=== PATIENT | male | born 1955 | race African-American/Black ===

== ENCOUNTER 2023-01-23 07:56 | Observation (INO) | payer OTHER, MEDICARE, SELFPAY ==
[2023-01-23] VITALS (17 sets, daily range): BP systolic 124–154; BP diastolic 75–89; PULSE 78–118; RESP 18–22; TEMP 36.4–37.9; O2SAT 94–98; BMI 38.3; BMI 38.9
--- NOTE | 2023-01-23 08:16 | CRLHL7_ITS ---
For Patients: As a result of the Century Cures Act, medical imaging exams and procedure reports are released immediately into your electronic medical record. You may view this report before your referring provider. If you have questions, please contact your health care provider. INDICATION: One-week history of cough. TECHNIQUE: One-view COMPARISON: None. FINDINGS: Patient positioning: Lordotic. The patient is not rotated. Adequate inspiration. Heart and mediastinum: Normal transverse dimension of the cardiac silhouette. No significant abnormalities. Lungs and pleural spaces: Anterior segment right upper lobe consolidation consistent with pneumonia in the correct clinical setting. No significant volume loss. Pleural-based peripheral left basilar thin uniform band opacity consistent with subsegmental atelectasis or nonspecific minor fibrosis. Bones and soft tissues: No acute findings. Left-sided dual lead cardiac conduction device. IMPRESSION: Anterior segment right upper lobe consolidation consistent with pneumonia in the correct clinical setting. Follow-up chest radiographs are recommended in 6-8 weeks to document clearing given the patient`s age. Dictated by Jordan Heath MD @ 01/23/2023 8:54:33 AM (Electronically Signed)
--- NOTE | 2023-01-23 08:19 | ED_ITS ---
HPI - General Adult General Chief complaint: Shortness of Breath/Dyspnea Stated complaint: trouble breathing Time Seen by Provider: 01/23/23 08:16 History of Present Illness HPI narrative: Patient is a 67-year-old black male with a history of sarcoidosis was been sick for the last couple of weeks. He has been through multiple exacerbations of sarcoid related illness with respiratory symptoms and wheezing. He feels like he is in that state at this point. He saw his provider few days ago and got started on steroids he has taken 2 doses of steroid. He did not have an x-ray. He has had a dry raspy cough, he has been slightly short of breath, he has had a low-grade fever and chills. He reports that he has a ?bad back?, and he also reports he has sarcoidosis. He reports he is on a ?water pill? and has a defibrillator. He states that the ?sarcoid got into my heart.? His pacemaker has been working well, he lives in [place]. His daughter is to arrive, he reports that he called the ambulance today, Medical chart was obtained from electronic health record, demonstrates the patient has a history of Heart palpitations Right bundle branch block Implanted cardioverter-defibrillator Acute on chronic diastolic heart failure Nonsustained ventricular tachycardia PSVT Ascending aortic dilatation Cardiac sarcoidosis Medications have included: Albuterol Eliquis Symbicort Oscal Lasix Plaquenil Cozaar Zaroxolyn Toprol XL CellCept Pamelor Prilosec Oyster shell calcium Prednisone for couple of days Related Data Home Medications Medication Instructions Recorded Confirmed albuterol sulfate 2.5 mg/3 mL 2.5 mg inhalation Q4H PRN wheezing 01/23/23 01/23/23 (0.083 %) solution for nebulization albuterol sulfate 90 mcg/actuation 2 puff inhalation Q4H PRN wheezing 01/23/23 01/23/23 aerosol inhaler (Ventolin HFA) apixaban 5 mg tablet 5 mg PO BID 01/23/23 01/23/23 budesonide-formoterol HFA 160 2 puff inhalation BID 01/23/23 01/23/23 mcg-4.5 mcg/actuation aerosol inhaler (Breyna) calcium carbonate 500 mg calcium 500 mg PO DAILY 01/23/23 01/23/23 (1,250 mg) tablet (Oyster Shell Calcium) furosemide 20 mg tablet 60 mg PO DAILY PRN 01/23/23 01/23/23 hydroxychloroquine 200 mg tablet 400 mg PO DAILY 01/23/23 01/23/23 (Plaquenil) losartan 50 mg tablet (Cozaar) 50 mg PO BID 01/23/23 01/23/23 metoprolol succinate 100 mg 100 mg PO BID 01/23/23 01/23/23 tablet,extended release 24 hr (Toprol XL) mycophenolate mofetil 500 mg 500 mg PO BID 01/23/23 01/23/23 tablet (CellCept) nortriptyline 10 mg capsule 10 mg PO HS 01/23/23 01/23/23 omeprazole 20 mg capsule,delayed 20 mg PO DAILY 01/23/23 01/23/23 release prednisone 20 mg tablet 40 mg PO DAILY 01/23/23 01/23/23 sildenafil 100 mg tablet (Viagra) 100 mg PO DAILY PRN 01/23/23 01/23/23 tamsulosin 0.4 mg capsule (Flomax) 0.4 mg PO DAILY 01/23/23 01/23/23 tizanidine 2 mg tablet 2 mg PO Q8H PRN 01/23/23 01/23/23 Allergies Allergy/AdvReac Type Severity Reaction Status Date / Time pollen extracts Allergy Mild sore throat Verified 01/23/23 09:18 Review of Systems Status of ROS: Reports: 6 or more systems reviewed and unremarkable except as noted in History and below Narrative: Specifically has not had any chest pain PFSH PFSH Social History Smoking Status: Never smoker Do you use any of these nicotine containing products: None How often do you have a drink containing alcohol: monthly or less AUDIT-C Alcohol total score: 1 Non-prescribed substance use: denies use service: No Exam Narrative: Exam Narrative: Objective: Temperature is a 100.3?, O2 sat is 94%, the patient get did get a DuoNeb in the ambulance. He has a raspy dry cough Talks in short and minimally labored sentences. HEENT shows no facial asymmetry mouth clear slightly dry Neck is supple Chest minimal air exchange bilaterally no obvious rales or wheezes Heart rhythm regular 2/6 systolic murmur Abdomen benign Extremities are no edema, neurologic nonfocal. Const: Vital Signs, click to edit/add: Vital Signs - 24 hr 01/23/23 08:04 01/23/23 08:26 01/23/23 08:28 Temperature 100.3 F H Pulse Rate 118 H Respiratory Rate 22 Blood Pressure Blood Pressure [Ri ght Upper Arm] 132/78 Pulse Oximetry 94 95 96 Oxygen Delivery Me thod Room Air 01/23/23 08:30 01/23/23 08:32 01/23/23 08:33 Temperature Pulse Rate 106 H 110 H 104 H Respiratory Rate Blood Pressure 154/87 H Blood Pressure [Ri ght Upper Arm] Pulse Oximetry 95 94 95 Oxygen Delivery Me thod 01/23/23 08:45 01/23/23 09:00 01/23/23 09:05 Temperature Pulse Rate 102 H 108 H 103 H Respiratory Rate Blood Pressure Blood Pressure [Ri ght Upper Arm] Pulse Oximetry 95 96 96 Oxygen Delivery Me thod 01/23/23 09:06 01/23/23 09:15 01/23/23 09:30 Temperature Pulse Rate 104 H 102 H 101 H Respiratory Rate Blood Pressure Blood Pressure [Ri ght Upper Arm] Pulse Oximetry 97 96 96 Oxygen Delivery Me thod 01/23/23 09:55 Temperature 98.5 F Pulse Rate Respiratory Rate Blood Pressure Blood Pressure [Ri ght Upper Arm] Pulse Oximetry Oxygen Delivery Me thod Course Vital Signs Vital signs: Initial Vital Signs Temperature 100.3 F H 01/23/23 08:04 Temperature Source Temporal Artery Scan 01/23/23 08:04 Respiratory Rate 22 01/23/23 08:04 Blood Pressure 132/78 01/23/23 08:04 Blood Pressure Mean 96 01/23/23 08:04 Blood Pressure Position Sitting 01/23/23 08:04 Pulse Oximetry 94 01/23/23 08:04 Oxygen Delivery Method Room Air 01/23/23 08:04 Vital Signs Temperature 100.3 F H 01/23/23 08:04 Respiratory Rate 22 01/23/23 08:04 Blood Pressure 132/78 01/23/23 08:04 Pulse Oximetry 94 01/23/23 08:04 Oxygen Delivery Method Room Air 01/23/23 08:04 Temperature 98.5 F 01/23/23 09:55 Pulse Rate 101 H 01/23/23 09:30 Respiratory Rate 22 01/23/23 08:04 Blood Pressure 154/87 H 01/23/23 08:32 Pulse Oximetry 96 01/23/23 09:30 Oxygen Delivery Method Room Air 01/23/23 08:04 Medical Decision Making MDM Narrative Medical decision making narrative: 67-year-old black male with a history of sarcoidosis, sick with an upper respiratory symptom for 2 weeks, with worsening breathing and fever. Rule out pneumonia, rule out sarcoid exacerbation, rule out bronchospasm/reactive airway disease. Patient this point I think would benefit from IV steroids, IV fluid, cardiac and oximetry monitoring, laboratory studies, blood cultures, COVID influenza RSV testing. Given the patient's respiratory symptoms and history of might be advisable to observe him overnight, hydration, antibiotics depending on his x-ray findings Addendum 8:56 a.m. patient has pretty significant pleural type scarring and interstitial scarring on his lung special on the right lung. Cannot exclude pneumonia. No old x-ray to compare. Will do a CT with IV contrast rule out PE rule out pneumonia rule out inter pulmonary pathology. Patient was in agreement Addendum 9:14 a.m.: Given the patient's immune compromise being on Plaquenil and steroid already, and his evidence of pneumonia. I think could be appropriate to admit him to the hospital for observation IV antibiotics IV fluid, nebulizers as needed, likely IV steroids. Will discuss with hospitalist. Lab Data Labs: Lab Results 01/23/23 01/23/23 Range/Units 08:20 08:41 WBC 9.38 (4.50-11.00) K/uL RBC 4.20 L (4.30-5.90) m/uL Hgb 13.3 L (13.5-17.5) gm/dL Hct 38.2 (37.0-53.0) % MCV 91 (80-100) fL MCH 32 (26-34) pg MCHC 35 (32-36) gm/dL RDW Coeff of Alice 12.9 (11.5-15.5) % Plt Count 158 (140-440) K/uL Neut % (Auto) 86.0 H (42.0-72.0) % Lymph % (Auto) 10.1 L (20-44) % Weakley % (Auto) 3.6 (0.0-11.0) % Eos % (Auto) 0.1 (0.0-7.0) % Baso % (Auto) 0.0 (0.0-3.0) % Neut # (Auto) 8.10 H (1.7-7.0) K/uL Lymph # (Auto) 0.90 (0.90-2.90) K/uL Weakley # (Auto) 0.30 (0.00-0.90) K/UL Eos # (Auto) 0.01 (0.00-0.50) K/uL Baso # (Auto) 0.00 (0.00-0.30) K/uL Abs Immat Gran (auto) 0.02 (0.00-0.30) K/uL Imm/Tot Granulo (auto) 0.2 % VBG pH 7.461 H (7.32-7.43) VBG pCO2 32 L (40-50) mmHG VBG pO2 50.7 H (25-47) mmHG VBG HCO3 23 (21-28) mmol/L Sodium 139 (135-149) mmol/L Potassium 4.0 (3.6-5.1) mmol/L Chloride 108 (96-114) mmol/L Carbon Dioxide 20 (20-32) mmol/L Anion Gap 11 (7-15) mEq/L BUN 16 (7-30) mg/dL Creatinine 1.0 (0.5-1.5) mg/dL Estimated Creat Clear 76.04 Estimated GFR 84 ml/min Glucose 128 H (60-115) mg/dL Lactate 1.2 (0.5-1.9) mmol/L Calcium 9.5 (8.4-10.6) mg/dL Total Bilirubin 1.0 (0.1-1.5) mg/dL Direct Bilirubin 0.0 (0.0-0.5) mg/dL AST 39 H (12-35) U/L ALT 21 (4-50) U/L Alkaline Phosphatase 51 (40-150) U/L Troponin I < 0.01 L (0.01-0.04) ng/mL C-Reactive Protein 2.7 H (0.5-1.0) mg/dL NT-Pro-B Natriuret Pep 123 pg/mL Total Protein 7.3 (6.0-8.3) g/dL Albumin 4.3 (3.3-5.0) g/dL SARS-CoV-2 (PCR) Negative SARS-CoV-2 (Negative) Influenza Type A (PCR) Negative PCR FLU A (Negative) Influenza Type B (PCR) Negative PCR FLU B (Negative) RSV (PCR) Negative PCR RSV (Negative) Discharge Plan Discharge Clinical Impression: Pulmonary sarcoidosis, Shortness of breath, Chronic low back pain Patient Disposition: Admitted As Inpatient
[2023-01-23 08:49] LABS: HCO3 VBG 23 mmol/L (21-28); Lactate* 1.2 mmol/L (0.5-1.9); PCO2 VBG 32 mmHG (40-50); PO2 VBG 50.7 mmHG (25-47); pH VBG 7.461 (7.32-7.43)
[2023-01-23 08:50] LABS: Eosinophils Absolute Auto 0.01 K/uL (0.00-0.50); Eosinophils Percent Auto 0.1 % (0.0-7.0); Hematocrit 38.2 % (37.0-53.0); Hemoglobin* 13.3 gm/dL (13.5-17.5); Immature Granulocytes Abs Auto 0.02 K/uL (0.00-0.30); Immature Granulocytes Pct Auto 0.2 %; Lymphocytes Percent Auto 10.1 % (20-44); Mean Corpuscular HGB Conc 35 gm/dL (32-36); Mean Corpuscular Hemoglobin 32 pg (26-34); Mean Corpuscular Volume 91 fL (80-100); Monocytes Percent Auto 3.6 % (0.0-11.0); Platelet Count* 158 K/uL (140-440); RDW Coefficient of Variation % 12.9 % (11.5-15.5); White Blood Count* 9.38 K/uL (4.50-11.00)
[2023-01-23] MEDS: IPRAT-ALBUT 0.5-2.5 MG/3 ML NEB 1 NEB IH (08:50)
[2023-01-23] MEDS: METHYLPREDNISOLONE SOD SUCC 62.5 MG/ML (125) 125 MG IVP (08:50)
--- NOTE | 2023-01-23 08:50 | CRLHL7_ITS ---
For Patients: As a result of the 21st Century Cures Act, medical imaging exams and procedure reports are released immediately into your electronic medical record. You may view this report before your referring provider. If you have questions, please contact your health care provider. INDICATION: Cough for 1 week. Possible PE or pneumonia. TECHNIQUE: Volumetric helical scanning of the thorax was performed during infusion of 95 cc of Isovue 370 contrast material IV, timing optimized for pulmonary arterial opacification. Coronal and sagittal reconstructions were obtained. COMPARISON: Chest x-ray of 01/23/2023 FINDINGS: The images are of acceptable quality and demonstrate uniform vascular enhancement within the pulmonary arteries. No pulmonary arterial filling defect is identified. The heart size is normal. An AICD is again noted. The lungs are low in volume. A patchy infiltrate consistent with pneumonia is demonstrated in the posterior left lower lobe base. Atelectasis and possible pneumonia is demonstrated in the inferior right upper lobe along the minor fissure and in the inferior lingula. There is no significant airway abnormality. A noncalcified 16 mm nodular density is demonstrated in the left lower lobe on image 116 of series 5. On image 98, a noncalcified 10 mm left lower lobe nodular density is demonstrated and on image 137, and 8 mm left lower lobe nodular density is noted. No pleural effusion is demonstrated. Mild mediastinal lymphadenopathy is demonstrated and enlarged hilar nodes are demonstrated bilaterally. Multiple deandra calcifications are demonstrated, particularly in the hilar nodes. Images of the upper abdomen are unremarkable. IMPRESSION: 1. Negative for pulmonary embolism. 2. Left lower lobe base pneumonia as well as atelectasis and possible pneumonia in the inferior right upper lobe and inferior lingula. 3. Noncalcified left lower lobe nodular densities measuring 69 mm, 10 mm and 8 mm. A three-month follow up chest CT is recommended. 4. Mediastinal and bilateral hilar lymphadenopathy with numerous lymph node calcifications, suggesting granulomatous disease. Please note that all CT scans at this facility use dose modulation, iterative reconstruction, and/or weight-based dosing when appropriate to reduce radiation dose to as low as reasonably achievable. Dictated by Thiago Bowden MD @ 01/23/2023 10:24:03 AM (Electronically Signed)
[2023-01-23 08:51] LABS: Slide Review Reflex No
[2023-01-23] MEDS: 0.9 % SODIUM CHLORIDE 1000 ml 1,000 ML 6000 ML IV (08:51)
[2023-01-23 09:04] LABS: PCR FLU A Negative PCR FLU A (Negative); PCR FLU B Negative PCR FLU B (Negative); PCR RSV Negative PCR RSV (Negative)
[2023-01-23 09:06] LABS: SARS PCR* Negative SARS-CoV-2 (Negative)
[2023-01-23 09:11] LABS: Chloride* 108 mmol/L (96-114); Sodium* 139 mmol/L (135-149)
[2023-01-23 09:13] LABS: Albumin* 4.3 g/dL (3.3-5.0)
[2023-01-23 09:14] LABS: Est. Creatinine Clearance* 76.04; Estimated Glomerular Filt Rate 84 ml/min
[2023-01-23 09:15] LABS: Anion Gap 11 mEq/L (7-15); Blood Urea Nitrogen* 16 mg/dL (7-30); Carbon Dioxide* 20 mmol/L (20-32); Glucose* 128 mg/dL (60-115)
[2023-01-23 09:16] LABS: Alanine Aminotransferase* 21 U/L (4-50); Alkaline Phosphatase* 51 U/L (40-150); Aspartate Amino Transferase* 39 U/L (12-35); Calcium* 9.5 mg/dL (8.4-10.6); Total Protein* 7.3 g/dL (6.0-8.3)
[2023-01-23 09:18] LABS: C Reactive Protein* 2.7 mg/dL (0.5-1.0)
[2023-01-23] MEDS: levoFLOXacin 500 MG TABLET PO (09:22)
[2023-01-23 09:25] LABS: NT Pro B Type NatriureticPept* 123 pg/mL
[2023-01-23 09:27] LABS: Troponin I* < 0.01 ng/mL (0.01-0.04)
[2023-01-23] MEDS: KETOROLAC 15 MG/ML inj IVP (09:30)
[2023-01-23] MEDS: PIPERACILLIN/TAZOBACTAM 4.5 GM in 0.9 % SODIUM CHLORIDE Mini-bag 100 ML IVPB (09:50)
--- NOTE | 2023-01-23 13:19 | P.IMHP_ITS ---
Hospitalist- H&P: HPI History of Present Illness Date Seen: 01/23/23 Chief complaint: trouble breathing Narrative: Mario Sidhu is a 67 year old male with history of pulmonary and cardiac sarcoidosis presents with a 1 week history of worsening cough and shortness of breath. Patient reports he was in his usual state of health until about a week ago when he had onset of some sore throat. This progressed to worsening cough. He started have wheezing as well. Five days ago he saw his primary care provider who started him on prednisone 40 mg daily. He has had that for 4 days but is getting worse. Patient has a history of pulmonary psych or doses which has been well controlled on current regimen of Plaquenil, mycophenolate. Recent evaluation of his cardiac sarcoid is also reassuring. He does not have a diagnosis of asthma or COPD. He follows with a machine feeder floorperson for his sarcoidosis. He is on inhaled treatments including Symbicort and albuterol. He reports he does get relief from his albuterol use p.r.n. Cardiac history includes cardiac sarcoidosis. He had a cardiac metabolic PET scan 09/10/2022 showed no active sarcoidosis. He has a defibrillator for an SVT and PSVT. Echocardiogram 1 year ago was unremarkable with normal biventricular size and function and normal valves. Review of Systems Narrative: Patient reports generally doing well other than respiratory symptoms outlined above. He does have urinary frequency and has been started on Flomax for that. [facility] Medical History (Updated 01/23/23 @ 13:45 by Thiago Rushing MD) Hypertension ?I10 - Essential (primary) hypertension (ICD-10) Ascending aorta dilation ?I77.810 - Thoracic aortic ectasia (ICD-10) History of kidney stones ?Z87.442 - Personal history of urinary calculi (ICD-10) Spinal stenosis of lumbar region ?M48.061 - Spinal stenosis, lumbar region without neurogenic claudication (ICD-10) Lumbar radiculopathy ?M54.16 - Radiculopathy, lumbar region (ICD-10) Right bundle branch block ?I45.10 - Unspecified right bundle-branch block (ICD-10) NSVT (nonsustained ventricular tachycardia) ?I47.29 - Other ventricular tachycardia (ICD-10) PSVT (paroxysmal supraventricular tachycardia) ?I47.10 - Supraventricular tachycardia, unspecified (ICD-10) Obstructive sleep apnea ?G47.33 - Obstructive sleep apnea (adult) (pediatric) (ICD-10) Benign prostatic hyperplasia with urinary frequency ?N40.1 - Benign prostatic hyperplasia with lower urinary tract symptoms (ICD- 10) ?R35.0 - Frequency of micturition (ICD-10) History of wheezing ?Z87.898 - Personal history of other specified conditions (ICD-10) Sarcoidosis ?D86.9 - Sarcoidosis, unspecified (ICD-10) Surgical History (Updated 01/23/23 @ 13:38 by Thiago Rushing MD) History of cardiac defibrillator placement ?Z95.810 - Presence of automatic (implantable) cardiac defibrillator (ICD-10) History of arthroplasty of right knee ?Z96.651 - Presence of right artificial knee joint (ICD-10) History of transurethral resection of prostate ?Z98.890 - Other specified postprocedural states (ICD-10) ?Z90.79 - Acquired absence of other genital organ(s) (ICD-10) Family History (Updated 01/23/23 @ 13:39 by Thiago Rushing MD) Sister Alzheimers disease Diabetes Uterine cancer Brother High blood pressure Mother High blood pressure Social History (Updated 01/23/23 @ 13:41 by Thiago Rushing MD) Narrative: Patient lives alone in [place]. 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 Daughter Guerda and son Edilberto are healthcare power of assistant city attorney. Code status is full. He no longer smokes but has a remote history of occasional smoking. He drinks about 2 alcoholic beverages per week. No recreational drug use. What is your current living situation?: I presently have a place to live Problems where you live: no known problems Problems where you live details: NA In the past 12 months, utilities in danger of being shut off: no In past 12 months, lack of transportation kept you from medical appts, meetings, work, or getting things needed for daily living: no In the past 12 mos, have been you worried that your food would run out before you had money to buy more?: never true In the past 12 mos, the food you bought just didn't last and you didn't have money to buy more?: never true Highest level of school completed/degree received: high school graduate Smoking Status: Former smoker What tobacco products do you use: cigars Do you use any of these nicotine containing products: None How often do you have a drink containing alcohol: 2-3 times a week Alcohol type: beer and wine How many standard drinks containing alcohol do you have on a typical day: 1 or 2 AUDIT-C Alcohol total score: 3 Non-prescribed substance use: denies use Caffeine: Yes How often does anyone, including family, friends and others, physically hurt you : never How often does anyone, including family, friends and others, insult or talk down to you: never How often does anyone, including family, friends and others, threaten you with harm: never How often does anyone, including family, friends and others, scream or curse at you: never service: No Meds Home Medications and Allergies Home Medications Medication Instructions Recorded Confirmed Type albuterol sulfate 2.5 mg/3 mL 2.5 mg inhalation Q4H PRN wheezing 01/23/23 01/23/23 History (0.083 %) solution for nebulization albuterol sulfate 90 mcg/actuation 2 puff inhalation Q4H PRN wheezing 01/23/23 01/23/23 History aerosol inhaler (Ventolin HFA) apixaban 5 mg tablet 5 mg PO BID 01/23/23 01/23/23 History budesonide-formoterol HFA 160 2 puff inhalation BID 01/23/23 01/23/23 History mcg-4.5 mcg/actuation aerosol inhaler (Breyna) calcium carbonate 500 mg calcium 500 mg PO DAILY 01/23/23 01/23/23 History (1,250 mg) tablet (Oyster Shell Calcium) furosemide 20 mg tablet 60 mg PO DAILY PRN 01/23/23 01/23/23 History hydroxychloroquine 200 mg tablet 400 mg PO DAILY 01/23/23 01/23/23 History (Plaquenil) losartan 50 mg tablet (Cozaar) 50 mg PO BID 01/23/23 01/23/23 History metoprolol succinate 100 mg 100 mg PO BID 01/23/23 01/23/23 History tablet,extended release 24 hr (Toprol XL) mycophenolate mofetil 500 mg 500 mg PO BID 01/23/23 01/23/23 History tablet (CellCept) nortriptyline 10 mg capsule 10 mg PO HS 01/23/23 01/23/23 History omeprazole 20 mg capsule,delayed 20 mg PO DAILY 01/23/23 01/23/23 History release prednisone 20 mg tablet 40 mg PO DAILY 01/23/23 01/23/23 History sildenafil 100 mg tablet (Viagra) 100 mg PO DAILY PRN 01/23/23 01/23/23 History tamsulosin 0.4 mg capsule (Flomax) 0.4 mg PO DAILY 01/23/23 01/23/23 History tizanidine 2 mg tablet 2 mg PO Q8H PRN 01/23/23 01/23/23 History Home Medication Comments: Patient is unsure of dosing and timing of some medicines. Allergies Allergy/AdvReac Type Severity Reaction Status Date / Time pollen extracts Allergy Mild sore throat Verified 01/23/23 09:18 Exam Narrative: Exam Narrative: He is alert and appears in no distress other than a persistent cough. Eyes normal. Oropharynx normal except for small airway. Neck is supple without mass or adenopathy. No tenderness. No jugular venous distension. Respirations are clear to auscultation. A rare right-sided crackle. Cardiovascular: S1, S2, regular rate and rhythm. Abdomen: Bowel sounds are active. Abdomen is soft without tenderness or mass. Extremities with intact pulses. He has no edema. Intact sensation. No rash. Const: Vital Signs, click to edit/add: Vital Signs - 24 hr 01/23/23 08:04 01/23/23 08:26 01/23/23 08:28 Temperature 100.3 F H Pulse Rate 118 H Pulse Rate [Right Radial] Respiratory Rate 22 Blood Pressure Blood Pressure [Ri ght Arm] Blood Pressure [Ri ght Upper Arm] 132/78 Pulse Oximetry 94 95 96 Oxygen Delivery Me thod Room Air 01/23/23 08:30 01/23/23 08:32 01/23/23 08:33 Temperature Pulse Rate 106 H 110 H 104 H Pulse Rate [Right Radial] Respiratory Rate Blood Pressure 154/87 H Blood Pressure [Ri ght Arm] Blood Pressure [Ri ght Upper Arm] Pulse Oximetry 95 94 95 Oxygen Delivery Me thod 01/23/23 08:45 01/23/23 09:00 01/23/23 09:05 Temperature Pulse Rate 102 H 108 H 103 H Pulse Rate [Right Radial] Respiratory Rate Blood Pressure Blood Pressure [Ri ght Arm] Blood Pressure [Ri ght Upper Arm] Pulse Oximetry 95 96 96 Oxygen Delivery Me thod 01/23/23 09:06 01/23/23 09:15 01/23/23 09:30 Temperature Pulse Rate 104 H 102 H 101 H Pulse Rate [Right Radial] Respiratory Rate Blood Pressure Blood Pressure [Ri ght Arm] Blood Pressure [Ri ght Upper Arm] Pulse Oximetry 97 96 96 Oxygen Delivery Me thod 01/23/23 09:55 01/23/23 10:25 01/23/23 10:25 Temperature 98.5 F Pulse Rate Pulse Rate [Right Radial] 94 Respiratory Rate 20 20 Blood Pressure Blood Pressure [Ri ght Arm] 124/77 Blood Pressure [Ri ght Upper Arm] Pulse Oximetry 95 95 Oxygen Delivery Me thod Room Air Room Air Documenting provider has reviewed patient's vital signs: yes Hospitalist - H&P: Result Labs Labs: Short CBC 01/23/23 Range/Units 08:41 WBC 9.38 (4.50-11.00) K/uL Hgb 13.3 L (13.5-17.5) gm/dL Hct 38.2 (37.0-53.0) % Plt Count 158 (140-440) K/uL BMP 01/23/23 08:41 Sodium 139 Potassium 4.0 Chloride 108 Carbon Dioxide 20 BUN 16 Creatinine 1.0 Glucose 128 H Calcium 9.5 Cardiac Enzymes 01/23/23 Range/Units 08:41 Troponin I < 0.01 L (0.01-0.04) ng/mL Liver Function 01/23/23 Range/Units 08:41 Total Bilirubin 1.0 (0.1-1.5) mg/dL Direct Bilirubin 0.0 (0.0-0.5) mg/dL AST 39 H (12-35) U/L ALT 21 (4-50) U/L Alkaline Phosphatase 51 (40-150) U/L Albumin 4.3 (3.3-5.0) g/dL Imaging CT scan - chest: Radiologist's impression: INDICATION: Cough for 1 week. Possible PE or pneumonia. TECHNIQUE: Volumetric helical scanning of the thorax was performed during infusion of 95 cc of Isovue 370 contrast material IV, timing optimized for pulmonary arterial opacification. Coronal and sagittal reconstructions were obtained. COMPARISON: Chest x-ray of 01/23/2023 FINDINGS: The images are of acceptable quality and demonstrate uniform vascular enhancement within the pulmonary arteries. No pulmonary arterial filling defect is identified. The heart size is normal. An AICD is again noted. The lungs are low in volume. A patchy infiltrate consistent with pneumonia is demonstrated in the posterior left lower lobe base. Atelectasis and possible pneumonia is demonstrated in the inferior right upper lobe along the minor fissure and in the inferior lingula. There is no significant airway abnormality. A noncalcified 16 mm nodular density is demonstrated in the left lower lobe on image 116 of series 5. On image 98, a noncalcified 10 mm left lower lobe nodular density is demonstrated and on image 137, and 8 mm left lower lobe nodular density is noted. No pleural effusion is demonstrated. Mild mediastinal lymphadenopathy is demonstrated and enlarged hilar nodes are demonstrated bilaterally. Multiple deandra calcifications are demonstrated, particularly in the hilar nodes. Images of the upper abdomen are unremarkable. IMPRESSION: 1. Negative for pulmonary embolism. 2. Left lower lobe base pneumonia as well as atelectasis and possible pneumonia in the inferior right upper lobe and inferior lingula. 3. Noncalcified left lower lobe nodular densities measuring 69 mm, 10 mm and 8 mm. A three-month follow up chest CT is recommended. 4. Mediastinal and bilateral hilar lymphadenopathy with numerous lymph node calcifications, suggesting granulomatous disease. Assessment and Plan Assessment and plan (1) Pneumonia: Problem comment: Appears to be community-acquired pneumonia. Right upper lobe and left base. Not hypoxic. Started on Levaquin in the emergency department. Will continue appropriate treatment course. Status: Acute (2) Benign prostatic hyperplasia with urinary frequency: Problem comment: Check bladder scan. History of TURP. Status: Acute (3) Pulmonary sarcoidosis: Problem comment: I think cardiac and pulmonary sarcoidosis are not the cause of his current illness. Status: Acute Plan Admit to the hospital for treatment of pneumonia. In the context of him being immunocompromised due to immunosuppressive drugs as well as history of pulmonary sarcoid will monitor for deterioration.. Total time spent today is 75 minutes, 50 minutes in coordination of care and discussing with patient and his daughter evaluation management of kidney acquired pneumonia in the context of immunosuppression as well as significant cardiopulmonary history.
[2023-01-23] MEDS: HYDROXYCHLOROQUINE 200 MG TABLET 400 MG PO (13:27)
[2023-01-23] MEDS: ACETAMINOPHEN 325 MG TABLET 650 MG PO (13:27)
[2023-01-23] MEDS: METOPROLOL SUCCINATE (XL) 100 MG TAB PO ×2 (13:27→20:29)
[2023-01-23] MEDS: mycophenolate mofetiL 250 MG CAPSULE 500 MG PO ×2 (13:28→20:29)
--- NOTE | 2023-01-23 18:32 | PC.NURSE ---
Nursing Care Hours: [id number] Pt this shift arrived from ED with adult daughter alert and oriented, calm and cooperative. Independent ambulation. VSS. LS clear but pt does have moist consistent cough, non productive. C/o hot flashes but afebrile. Eating and drinking sufficiently. Voiding frequently, pt states is chronic problem. Bladder scan did not show retention. Tele shows NSR. Aerobika and education on use given.
[2023-01-23] MEDS: LOSARTAN POTASSIUM 50 MG TABLET PO (20:29)
[2023-01-23] MEDS: NORTRIPTYLINE 10 MG CAPSULE PO (20:29)
[2023-01-23] MEDS: APIXABAN 5 MG TABLET PO (20:29)
[2023-01-23] MEDS: SODIUM CHLORIDE 0.9 % (FLUSH) 10 ML SYRINGE 5 ML IVF (20:30)
[2023-01-23] MEDS: phenoL 1.4 % THROAT SPRAY 1 SPRAY MUCOUS MEM (21:55)
[2023-01-23] MEDS: BENZOCAINE/MENTHOL 1 EACH LOZENGE MUCOUS MEM (21:56)
[2023-01-24 04:30] VITALS: BP 117/78; PULSE 69; RESP 18; TEMP 36.7; O2SAT 97
[2023-01-24] MEDS: OMEPRAZOLE 20 MG CAPSULE DR PO (06:25)
[2023-01-24 07:11] VITALS: PULSE 69
[2023-01-24 07:30] VITALS: BP 137/84; PULSE 67; RESP 20; TEMP 36.2; O2SAT 100
[2023-01-24] MEDS: mycophenolate mofetiL 250 MG CAPSULE 500 MG PO (08:46)
[2023-01-24] MEDS: CALCIUM CARBONATE 500 MG TABLET PO (08:46)
[2023-01-24] MEDS: TAMSULOSIN HCL 0.4 MG CAPSULE PO (08:46)
[2023-01-24] MEDS: METOPROLOL SUCCINATE (XL) 100 MG TAB PO (08:46)
[2023-01-24] MEDS: HYDROXYCHLOROQUINE 200 MG TABLET 400 MG PO (08:46)
[2023-01-24] MEDS: APIXABAN 5 MG TABLET PO (08:46)
[2023-01-24] MEDS: predniSONE 20 MG TABLET 40 MG PO (08:46)
[2023-01-24] MEDS: levoFLOXacin 500 MG TABLET PO (08:47)
[2023-01-24] MEDS: SODIUM CHLORIDE 0.9 % (FLUSH) 10 ML SYRINGE 5 ML IVF (08:47)
[2023-01-24] MEDS: LOSARTAN POTASSIUM 50 MG TABLET PO (08:47)
[2023-01-24] MEDS: FUROSEMIDE 20 MG TABLET PO (08:53)
[2023-01-24] MEDS: phenoL 1.4 % THROAT SPRAY 1 SPRAY MUCOUS MEM (10:09)
[2023-01-24] MEDS: BENZOCAINE/MENTHOL 1 EACH LOZENGE MUCOUS MEM (10:10)
[2023-01-24 10:30] VITALS: RESP 20; O2SAT 93
--- NOTE | 2023-01-24 10:32 | RESP.RT ---
Patient sitting up in chair, appears comfortable, breathing regular/easy. Good clear voice, clear non-productive cough to command. PEP with Aerobika, good exhalation effort, with good chest shake. Discussed with patient and gave patient Extension to use with MDI's. Patient understands benefits of using extensions.
[2023-01-24 11:15] VITALS: BP 128/79; PULSE 78; RESP 18; TEMP 36.3; O2SAT 96
--- NOTE | 2023-01-24 12:17 | PC.NURSE ---
Pt alert and oriented. Pt had no complaints of pain.?Pt independent in room and hallways. IV removed catheter intact. Pt to discharge home accompanied by daughter.
--- NOTE | 2023-01-24 13:21 | P.DS_ITS ---
DS: Providers Provider Date Seen: 01/24/23 Date of admission: 01/23/23 10:08 Primary care physician: Janet Richardson DO Admitting Clinician: Thiago Rushing MD Attending Physician on discharge: Thiago Rushing MD Date of Discharge: 01/24/23 DS: Diagnosis Discharge Diagnosis (1) Pneumonia: Status: Acute Problem details: Appears to be community-acquired pneumonia. Right upper lobe and left base. Not hypoxic. Started on Levaquin in the emergency department. Will continue appropriate treatment course as an outpatient. (2) PSVT (paroxysmal supraventricular tachycardia): Status: Acute Problem details: no symptomatic dysrhythmias (3) Urinary urgency: Status: Acute Problem details: Patient has history of TURP. No significant urine on post void residual. Probably has overactive bladder. (4) Benign prostatic hyperplasia with urinary frequency: Status: Acute Problem details: Check bladder scan. History of TURP. (5) Sarcoidosis: Status: Acute Problem details: Sarcoidosis since about 1979 involving primarily lungs but also cardiac and cutaneous. (6) Pulmonary sarcoidosis: Status: Acute Problem details: I think cardiac and pulmonary sarcoidosis are not the cause of his current illness. DS: Summary Hospital Course Hospital Course: 67-year-old male With history of pulmonary and cardiac sarcoidosis was admitted to the hospital with a one-week history of cough and sore throat with progressive dyspnea. On admission he was found to have pneumonia. he was started on levofloxacin in the emergency department and that was continued in the hospital. During his hospital stay he had normal oxygen levels in the upper 90s. He had no fever. He had a persistent cough. He did receive steroids in the emergency department but clinically his illness was not thought to be due to asthma, COPD or sarcoidosis. Steroids were discontinued. Status at Discharge Functional status at discharge: independent ambulation Overall status at discharge: patient is progressing back to baseline Time Spent with Patient Time attestation: Total time spent providing and/or coordinating discharge services: 40 minutes Time spent: Greater than 30 minutes Exam Narrative: Exam Narrative: he is alert and appears in no distress. Respirations are clear to auscultation without wheezing rales rhonchi. No obvious crackles noted. Cardiovascular: S1, S2, regular rate and rhythm. Abdomen is soft without tenderness. Const: Vital Signs, click to edit/add: Vital Signs - 24 hr 01/23/23 15:00 01/23/23 15:00 01/23/23 15:00 Temperature 98.6 F Pulse Rate 86 Pulse Rate [Pulse Oximeter] Pulse Rate [Right Radial] 86 86 Respiratory Rate 20 20 Blood Pressure [Ri ght Arm] 129/79 Pulse Oximetry 98 Oxygen Delivery Me thod Room Air 01/23/23 20:40 01/23/23 22:12 01/23/23 22:12 Temperature 97.5 F L Pulse Rate 82 Pulse Rate [Pulse Oximeter] Pulse Rate [Right Radial] 79 79 Respiratory Rate 20 20 Blood Pressure [Ri ght Arm] 145/75 H Pulse Oximetry 96 Oxygen Delivery Me thod Room Air 01/23/23 22:12 01/24/23 04:30 01/24/23 07:11 Temperature 97.6 F 98.0 F Pulse Rate 69 Pulse Rate [Pulse Oximeter] Pulse Rate [Right Radial] 78 69 Respiratory Rate 18 18 Blood Pressure [Ri ght Arm] 137/89 117/78 Pulse Oximetry 97 97 Oxygen Delivery Ma thod Room Air Room Air 01/24/23 07:30 01/24/23 10:30 01/24/23 11:15 Temperature 97.1 F L 97.4 F L Pulse Rate Pulse Rate [Pulse Oximeter] 67 78 Pulse Rate [Right Radial] Respiratory Rate 20 20 18 Blood Pressure [Ri ght Arm] 137/84 128/79 Pulse Oximetry 100 93 96 Oxygen Delivery Me thod Room Air Room Air Room Air Documenting provider has reviewed patient's vital signs: yes DS: Data Data Completed and Pending Labs on day of discharge: Preliminary micro results at discharge 01/23/23 08:25 Blood Culture - Preliminary Blood NO GROWTH AFTER 24 HOURS 01/23/23 08:41 Blood Culture - Preliminary Blood NO GROWTH AFTER [address] scan - chest: Radiologist's impression: INDICATION: Cough for 1 week. Possible PE or pneumonia. TECHNIQUE: Volumetric helical scanning of the thorax was performed during infusion of 95 cc of Isovue 370 contrast material IV, timing optimized for pulmonary arterial opacification. Coronal and sagittal reconstructions were obtained. COMPARISON: Chest x-ray of 01/23/2023 FINDINGS: The images are of acceptable quality and demonstrate uniform vascular enhancement within the pulmonary arteries. No pulmonary arterial filling defect is identified. The heart size is normal. An AICD is again noted. The lungs are low in volume. A patchy infiltrate consistent with pneumonia is demonstrated in the posterior left lower lobe base. Atelectasis and possible pneumonia is demonstrated in the inferior right upper lobe along the minor fissure and in the inferior lingula. There is no significant airway abnormality. A noncalcified 16 mm nodular density is demonstrated in the left lower lobe on image 116 of series 5. On image 98, a noncalcified 10 mm left lower lobe nodular density is demonstrated and on image 137, and 8 mm left lower lobe nodular density is noted. No pleural effusion is demonstrated. Mild mediastinal lymphadenopathy is demonstrated and enlarged hilar nodes are demonstrated bilaterally. Multiple deandra calcifications are demonstrated, particularly in the hilar nodes. Images of the upper abdomen are unremarkable. IMPRESSION: 1. Negative for pulmonary embolism. 2. Left lower lobe base pneumonia as well as atelectasis and possible pneumonia in the inferior right upper lobe and inferior lingula. 3. Noncalcified left lower lobe nodular densities measuring 69 mm, 10 mm and 8 mm. A three-month follow up chest CT is recommended. 4. Mediastinal and bilateral hilar lymphadenopathy with numerous lymph node calcifications, suggesting granulomatous disease. Discharge Plan Discharge Disposition: Home, Self-Care Date of Admission: 01/23/23 10:08 Attending Provider on Discharge: Thiago Rsuhing Primary Care Provider: Janet Richardson Condition: Improved Anticipated Discharge Date/Time: 01/24/23 12:00 Discharge Medications: New levofloxacin 500 mg tablet 500 mg PO Q24H Qty: 5 0RF Sore Throat (phenol) 1.4 % Aerosol,[place] 1 spray mucous membrane Q2H PRNQty: 177 0RF Continued apixaban 5 mg tablet 5 mg PO BID budesonide-formoterol [Breyna] 160-4.5 mcg/actuation HFA aerosol inhaler 2 puff inhalation BID furosemide 20 mg tablet 60 mg PO DAILY PRN hydroxychloroquine [Plaquenil] 200 mg tablet 400 mg PO DAILY losartan [Cozaar] 50 mg tablet 50 mg PO BID metoprolol succinate [Toprol XL] 100 mg tablet extended release 24 hr 100 mg PO BID mycophenolate mofetil [CellCept] 500 mg tablet 500 mg PO BID nortriptyline 10 mg capsule 10 mg PO HS omeprazole 20 mg capsule,delayed release(DR/EC) 20 mg PO DAILY calcium carbonate [Oyster Shell Calcium] 500 mg calcium (1,250 mg) tablet 500 mg PO DAILY sildenafil [Viagra] 100 mg tablet 100 mg PO DAILY PRN tamsulosin [Flomax] 0.4 mg capsule 0.4 mg PO DAILY albuterol sulfate 2.5 mg /3 mL (0.083 %) solution for nebulization 2.5 mg inhalation Q4H PRN (Reason: wheezing) albuterol sulfate [Ventolin HFA] 90 mcg/actuation HFA aerosol inhaler 2 puff INHALATION Q4H PRN (Reason: wheezing) tizanidine 2 mg tablet 2 mg PO Q8H PRN Discontinued prednisone 20 mg tablet 40 mg PO DAILY Discharge Orders: Discharge Order (Routine); Ordered 01/24/23 Ordered By: Thiago Rushing Patient Education: Levofloxacin (By mouth), Phenol (By mouth) (Chloraseptic, Chloraseptic Sore Throat, Sore..., Bacterial Pneumonia (DC) Additional Instructions: You are doing well with your pneumonia. Take Levaquin daily for 5 more days. See your doctor next week for recheck. Return to the hospital if you have more trouble breathing. You are emptying your bladder very well. I think your bladder control problems are due to an overactive bladder. Talk with your doctor about medication for this. Follow Up Appointments: Janet Richardson DO [Primary Care Provider] - 01/31/23 10:00 am (See your doctor next week for follow-up of your pneumonia. You can also discuss with her management of your bladder control problems.) Forms: [employer] Info Instructions
== END 2023-01-24 12:40 | disposition home or self-care (01) ==
LOC: ED 09:36 → MEDSURG 10:08
PROVIDERS: Admitting Provider Family Medicine; Emergency Provider Family Medicine; PCP Family Medicine; Visit Provider Family Medicine
DX: J18.9 Pneumonia, unspecified organism (principal); R05.9 Cough, unspecified; D86.0 Sarcoidosis of lung; D86.85 Sarcoid myocarditis; N40.1 Benign prostatic hyperplasia with lower urinary tract symptoms; R35.0 Frequency of micturition; R39.15 Urgency of urination; I47.10 Supraventricular tachycardia, unspecified; D86.3 Sarcoidosis of skin; I10 Essential (primary) hypertension; K21.9 Gastro-esophageal reflux disease without esophagitis; M54.50 Low back pain, unspecified; G89.29 Other chronic pain; I45.10 Unspecified right bundle-branch block; Z87.442 Personal history of urinary calculi; Z87.898 Personal history of other specified conditions; Z95.810 Presence of automatic (implantable) cardiac defibrillator; Z95.0 Presence of cardiac pacemaker; Z96.651 Presence of right artificial knee joint; Z90.79 Acquired absence of other genital organ(s); Z98.890 Other specified postprocedural states
CPT/HCPCS: 36415; 51798; 71045; 71275; 80048; 80076; 82803; 83605; 83880; 84484; 85025; 86140; 87040; 87631; 93005; 94640; 94664; 94761; 96361; 96365; 96375; 99285; A9270; G0378; J1885; J2543; J2930; J7030; J7512; Q9967

== ENCOUNTER 2023-03-29 13:46 | Outpatient (CLI) | payer OTHER, MEDICARE, SELFPAY | END 2023-03-29 13:47 | disposition home or self-care (01) | LOC: INJ CL 13:50 | PROVIDERS: PCP Family Medicine; Visit Provider Family Medicine | DX: M25.561 Pain in right knee (principal) | CPT/HCPCS: 64454 ==

== ENCOUNTER 2023-06-03 12:02 | Emergency (ER) | payer OTHER, MEDICARE, SELFPAY ==
[2023-06-03 12:06] VITALS: BP 123/83; PULSE 79; RESP 16; TEMP 36.8; O2SAT 96; BMI 39.5
--- NOTE | 2023-06-03 12:58 | ED_ITS ---
HPI - General Adult General Time Seen by Provider: 12:59 Date Seen: 06/03/23 Chief complaint: GI Bleed Stated complaint: Rectal bleeding Time Seen by Provider: 06/03/23 12:57 Source: patient and RN notes reviewed Mode of arrival: ambulatory Limitations: no limitations History of Present Illness HPI narrative: This 68-year-old male is coming in with concern of rectal bleeding. He states he has been having dark tarry stools as well as some bright red blood for about a month now. He had colonoscopy maybe about a urine half ago per his report, nursing notes stated 5 years but he tells me it was probably about a year and half ago. He did have polyps. He is on prednisone for sarcoidosis, does see a orthotic practitioner. He reportedly has sarcoidosis for years, does have cardiac involvement. He went to see someone in clinic recently, they do have him scheduled for a GI consult this upcoming week on Tuesday. He feels that the bleeding is worsening, having more frequent stools. Does note bright red blood. He did have a little left upper quadrant abdominal discomfort starting today. No fevers or chills. No nausea vomiting. Patient does note that he had h emorrhoidal type tissue few weeks back, use of [id number] type medicine like preparation H and those resolved, bleeding continued however. I do see that he is on Eliquis. Related Data Home Medications Medication Instructions Recorded Confirmed albuterol sulfate 2.5 mg/3 mL 2.5 mg inhalation Q4H PRN wheezing 01/23/23 (0.083 %) solution for nebulization albuterol sulfate 90 mcg/actuation 2 puff inhalation Q4H PRN wheezing 01/23/23 06/03/23 aerosol inhaler (Ventolin HFA) apixaban 5 mg tablet 5 mg PO BID 01/23/23 06/03/23 budesonide-formoterol HFA 160 2 puff inhalation BID 01/23/23 06/03/23 mcg-4.5 mcg/actuation aerosol inhaler (Breyna) calcium carbonate 500 mg calcium 500 mg PO DAILY 01/23/23 06/03/23 (1,250 mg) tablet (Oyster Shell Calcium) furosemide 20 mg tablet 60 mg PO DAILY PRN 01/23/23 06/03/23 hydroxychloroquine 200 mg tablet 400 mg PO DAILY 01/23/23 06/03/23 (Plaquenil) losartan 50 mg tablet (Cozaar) 50 mg PO BID 01/23/23 06/03/23 metoprolol succinate 100 mg 100 mg PO BID 01/23/23 06/03/23 tablet,extended release 24 hr (Toprol XL) mycophenolate mofetil 500 mg 500 mg PO BID 01/23/23 06/03/23 tablet (CellCept) nortriptyline 10 mg capsule 10 mg PO HS 01/23/23 06/03/23 omeprazole 20 mg capsule,delayed 20 mg PO DAILY 01/23/23 06/03/23 release sildenafil 100 mg tablet (Viagra) 100 mg PO DAILY PRN 01/23/23 06/03/23 tamsulosin 0.4 mg capsule (Flomax) 0.4 mg PO DAILY 01/23/23 06/03/23 tizanidine 2 mg tablet 2 mg PO Q8H PRN 01/23/23 06/03/23 Previous Rx's Medication Instructions Recorded phenol 1.4 % mucosal aerosol spray 1 spray mucous membrane Q2H PRN 01/24/23 (Sore Throat (phenol)) #177 mL Allergies Allergy/AdvReac Type Severity Reaction Status Date / Time pollen extracts Allergy Mild sore throat Verified 01/23/23 09:18 narcotics Allergy Intermediate NV Uncoded 06/03/23 12:15 Review of Systems Status of ROS: Reports: 6 or more systems reviewed and unremarkable except as noted in History and below [facility] Medical History Chronic low back pain ?M54.50 - Low back pain, unspecified (ICD-10) ?G89.29 - Other chronic pain (ICD-10) Shortness of breath ?R06.02 - Shortness of breath (ICD-10) Urinary urgency ?R39.15 - Urgency of urination (ICD-10) Hypertension ?I10 - Essential (primary) hypertension (ICD-10) Ascending aorta dilation ?I77.810 - Thoracic aortic ectasia (ICD-10) History of kidney stones ?Z87.442 - Personal history of urinary calculi (ICD-10) Spinal stenosis of lumbar region ?M48.061 - Spinal stenosis, lumbar region without neurogenic claudication (ICD-10) Lumbar radiculopathy ?M54.16 - Radiculopathy, lumbar region (ICD-10) Right bundle branch block ?I45.10 - Unspecified right bundle-branch block (ICD-10) NSVT (nonsustained ventricular tachycardia) ?I47.29 - Other ventricular tachycardia (ICD-10) PSVT (paroxysmal supraventricular tachycardia) ?I47.10 - Supraventricular tachycardia, unspecified (ICD-10) Obstructive sleep apnea ?G47.33 - Obstructive sleep apnea (adult) (pediatric) (ICD-10) Benign prostatic hyperplasia with urinary frequency ?N40.1 - Benign prostatic hyperplasia with lower urinary tract symptoms (ICD- 10) ?R35.0 - Frequency of micturition (ICD-10) History of wheezing ?Z87.898 - Personal history of other specified conditions (ICD-10) Sarcoidosis ?D86.9 - Sarcoidosis, unspecified (ICD-10) Surgical History History of cardiac defibrillator placement ?Z95.810 - Presence of automatic (implantable) cardiac defibrillator (ICD-10) History of arthroplasty of right knee ?Z96.651 - Presence of right artificial knee joint (ICD-10) History of transurethral resection of prostate ?Z98.890 - Other specified postprocedural states (ICD-10) ?Z90.79 - Acquired absence of other genital organ(s) (ICD-10) Family History (Updated 01/23/23 @ 13:39 by Thiago Rushing MD) Sister Alzheimers disease Diabetes Uterine cancer Brother High blood pressure Mother High blood pressure Social History Narrative: Patient lives alone in [place]. 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 Daughter Guerda and son Edilberto are healthcare power of ip technology transactions attorney. Code status is full. He no longer smokes but has a remote history of occasional smoking. He drinks about 2 alcoholic beverages per week. No recreational drug use. What is your current living situation?: I presently have a place to live Problems where you live: no known problems Problems where you live details: NA In the past 12 months, utilities in danger of being shut off: no In past 12 months, lack of transportation kept you from medical appts, meetings, work, or getting things needed for daily living: no In the past 12 mos, have been you worried that your food would run out before you had money to buy more?: never true In the past 12 mos, the food you bought just didn't last and you didn't have m oney to buy more?: never true Highest level of school completed/degree received: high school graduate Smoking Status: Former smoker What tobacco products do you use: cigars Do you use any of these nicotine containing products: None How often do you have a drink containing alcohol: 2-3 times a week Alcohol type: beer and wine How many standard drinks containing alcohol do you have on a typical day: 1 or 2 AUDIT-C Alcohol total score: 3 Non-prescribed substance use: denies use Caffeine: Yes How often does anyone, including family, friends and others, physically hurt you : never How often does anyone, including family, friends and others, insult or talk down to you: never How often does anyone, including family, friends and others, threaten you with harm: never How often does anyone, including family, friends and others, scream or curse at you: never service: No Exam Const: Vital Signs, click to edit/add: Vital Signs - 24 hr 06/03/23 12:06 06/03/23 13:10 Temperature 98.3 F Pulse Rate [Pulse Oximeter] 79 Respiratory Rate 16 Blood Pressure [Ri ght Upper Arm] 123/83 Pulse Oximetry 96 98 Oxygen Delivery Me thod Room Air This is a very pleasant 68-year-old gentleman. Sclera clear. Pupils equal round, conjugate gaze. Able speak in complete sentences. Neck is thicker but note no masses or jugular venous distension. Lungs are clear, good air entry, no wheezing crackles. CV regular rate and rhythm, no murmur, normal S1-S2, no S3-S4. Abdomen mildly obese but soft, no rebound or guarding, no organomegaly, really no concerning tenderness. He has a little toilet paper which is removed, there is a little stool and a little bright red blood. On inspection of the anus, see no active area of bleeding, see no significant hemorrhoids or concerning external changes. Digital rectal exam done, feel no masses, no bright red blood on the withdrawn gloved finger. Stool collected for occult blood. Documenting provider has reviewed patient's vital signs: yes Course Course ED Course: Will place an IV, will give him IV Protonix. He is reporting both melena and bright red blood per rectum. We discussed the difference between upper GI bleeding and lower GI bleeding. He is currently hemodynamically stable and is not having any evidence of rapid or life-threatening blood loss. Will certainly get a hemoglobin and appropriate lab work on him. Will confirm probable occult blood with stool sent to lab. Reevaluation(s) Time of Reevaluation #1: 14:56 Reevaluation #1: Have reviewed with patient that his hemoglobin is stable. It is 13.1 today. On April it was 13.6. On May 23 it was 14.1. This is not a significant life threatening drop. He did have a stool, had more blood in it. Discussed options. There are other entities such as colitis, he would like to proceed with CT imaging of his abdomen and pelvis. I do think it is reasonable. I do see that he is on apixaban. Time of Reevaluation #2: 16:52 Reevaluation #2: Reviewed with patient that we are still awaiting radiology to read his CT scan. He believes he is on Eliquis for rhythm issues in his heart, possibly atrial fibrillation. Did review with them that he is likely going to continue to have some bleeding while on this, reviewed that this was an anticoagulant. He is not however showing any life-threatening bleeding. Time of Reevaluation #3: 17:17 Reevaluation #3: Reviewed with patient his CT scan. He does have changes in his chest consistent with his sarcoidosis that is known. His colon and small bowel are not showing any acute abnormality. He had evidence of bright red blood here, no external evidence of any active bleeding. He very well may need EGD and colonoscopy, ne eds to keep his upcoming GI appointment. I do not feel comfortable telling him to withhold his anticoagulation, do not have enough knowledge about his history. He states he will contact his orthotic practitioner before ever withholding that medication, I do support that approach. He is not exhibiting any life- threatening bleeding at this time. I think he can discharge for further outpatient management. If increasing bleeding, will need re-evaluation in the interim. Vital Signs Vital signs: Initial Vital Signs Temperature 98.3 F 06/03/23 12:06 Temperature Source Temporal Artery Scan 06/03/23 12:06 Pulse Rate 79 06/03/23 12:06 Respiratory Rate 16 06/03/23 12:06 Blood Pressure 123/83 06/03/23 12:06 Blood Pressure Mean 96 06/03/23 12:06 Blood Pressure Position Sitting 06/03/23 12:06 Pulse Oximetry 96 06/03/23 12:06 Oxygen Delivery Method Room Air 06/03/23 12:06 Vital Signs Temperature 98.3 F 06/03/23 12:06 Pulse Rate 79 06/03/23 12:06 Respiratory Rate 16 06/03/23 12:06 Blood Pressure 123/83 06/03/23 12:06 Pulse Oximetry 96 06/03/23 12:06 Oxygen Delivery Method Room Air 06/03/23 12:06 Temperature 98.3 F 06/03/23 12:06 Pulse Rate 79 06/03/23 12:06 Respiratory Rate 16 06/03/23 12:06 Blood Pressure 123/83 06/03/23 12:06 Pulse Oximetry 98 06/03/23 13:10 Oxygen Delivery Method Room Air 06/03/23 12:06 Medications Administered Medications: Discontinued Medications Generic Name Dose Route Start Last Admin Trade Name Freq PRN Reason Stop Dose Admin Pantoprazole Sodium 40 mg 06/03/23 13:10 06/03/23 13:34 Pantoprazole Sodium 40 Mg Inj IVP 06/03/23 13:11 40 mg ONCE ONE Administration Medical Decision Making Lab Data Lab results reviewed: Yes I reviewed the patient's lab results Labs: Lab Results 06/03/23 06/03/23 Range/Units 13:21 13:34 WBC 3.72 L (4.50-11.00) K/uL RBC 4.09 L (4.30-5.90) m/uL Hgb 13.1 L (13.5-17.5) gm/dL Hct 37.6 (37.0-53.0) % MCV 92 (80-100) fL MCH 32 (26-34) pg MCHC 35 (32-36) gm/dL RDW Coeff of Alice 12.5 (11.5-15.5) % Plt Count 182 (140-440) K/uL Neut % (Auto) 51.9 (42.0-72.0) % Lymph % (Auto) 30.9 (20-44) % Coal % (Auto) 12.9 H (0.0-11.0) % Eos % (Auto) 3.8 (0.0-7.0) % Baso % (Auto) 0.0 (0.0-3.0) % Neut # (Auto) 1.90 (1.7-7.0) K/uL Lymph # (Auto) 1.10 (0.90-2.90) K/uL Coal # (Auto) 0.50 (0.00-0.90) K/UL Eos # (Auto) 0.10 (0.00-0.50) K/uL Baso # (Auto) 0.00 (0.00-0.30) K/uL Abs Immat Gran (auto) 0.00 (0.00-0.30) K/uL Imm/Tot Granulo (auto) 0.5 % Sodium 138 (135-149) mmol/L Potassium 4.2 (3.6-5.1) mmol/L Chloride 110 (96-114) mmol/L Carbon Dioxide 21 (20-32) mmol/L Anion Gap 7 (7-15) mEq/L BUN 21 (7-30) mg/dL Creatinine 0.9 (0.5-1.5) mg/dL Estimated Creat Clear 75.03 Estimated GFR 94 ml/min Glucose 96 (60-115) mg/dL Lactate 0.9 (0.5-1.9) mmol/L Calcium 9.7 (8.4-10.6) mg/dL Total Bilirubin 0.5 (0.1-1.5) mg/dL AST 39 H (12-35) U/L ALT 26 (4-50) U/L Alkaline Phosphatase 49 (40-150) U/L Total Protein 7.3 (6.0-8.3) g/dL Albumin 4.2 (3.3-5.0) g/dL Stool Occult Blood Positive (Negative) Blood Type B Positive Antibody Screen NEGATIVE Imaging Data CT scan - abdomen: Attestation: I have reviewed the pertinent imaging results. Radiologist's impression: Patient: HERMINIO WILDER Facility:[facility] Patient ID:?[id number] Site Patient ID:?[id number]. Site :?[id number] Study:?CT Abdomen/Pelvis w/ 135cc [id number] 4:11:55 PM Ordering Physician:Jerrod Art Final Report: Indication: Pain, melena, bright red blood per rectum Technique: Volumetric multidetector CT images of the abdomen and pelvis were obtained after the administration of intravenous contrast. 135 cc Isovue 370 low osmolar intravenous contrast Comparison: None available. Findings: There are bulky right greater than left hilar lymph nodes with calcified mediastinal, subcarinal and hilar adenopathy with moderate interstitial and parenchymal scarring as well as air bronchograms and consolidative opacities within the bilateral upper greater than lower lobes. There is a somewhat spiculated masslike consolidation within the left lung base measuring up to 2.0 centimeters. The liver is normal in attenuation without intrahepatic biliary ductal dilatation. The portal vein is patent. The gallbladder is unremarkable without evidence of radiopaque calculus. There is no significant common biliary ductal dilatation or abrupt cut off. The spleen is normal in enhancement and size. The stomach and duodenum are grossly unremarkable. The pancreas is normal in enhancement without significant atrophy. The adrenal glands are unremarkable. There are cortical defect of the right kidney with minimal peripheral calcified material which may represent prior wedge resection. Otherwise the kidneys demonstrate preserved corticomedullary differentiation without evidence of distal obstructive uropathy. There is moderate stool seen throughout the proximal colon with minimal distal colonic diverticulosis. There is minimal nonspecific fluid-filled central small bowel without evidence of obstructive change. The appendix is not visualized. There is no significant mesenteric, retroperitoneal, or pelvic sidewall lymph nodes. The aorta is nonaneurysmal. There is no significant atherosclerotic disease appreciated. The solid pelvic viscera are grossly unremarkable. There is no free fluid or free air. The anterior abdominal wall is intact without significant hernias. The lumbar vertebral body heights are grossly maintained with mild to moderate degenerative disc disease. There is no significant spondylolisthesis or displaced fracture. Impression: 1. Demonstration of extensive bulky lymph nodes with calcified mediastinal and hilar adenopathy seen within the lung base with air bronchograms, parenchymal scarring and masslike pulmonary nodules seen most prominently in the left lower lobe. Overall, these findings could represent evolving sarcoidosis changes and or sequela of prior organizing pneumonia and/or granulomatous infectious change. Correlate with clinical history. 2. Grossly unremarkable colon and small bowel with minimal nonspecific central fluid. No overt pericolonic inflammation is identified. Follow-up with angiography and/or colonoscopy may be useful for improved characterization. 3. No other acute intra-abdominal abnormalities are appreciated. Please note that all CT scans at this facility use dose modulation, iterative reconstruction, and/or weight-based dosing when appropriate to reduce radiation dose to as low as reasonably achievable. Dictated by Nicholas Rendon MD @ 06/03/2023 5:08:24 PM (Electronic Signature) Discharge Plan Discharge Clinical Impression: Chronic anticoagulation, BRBPR (bright red blood per rectum) Patient Disposition: Home, Self-Care Condition: Stable Instructions: Gastrointestinal Bleeding (ED), Rectal Bleeding (ED) Additional Instructions: We will increase proton pump inhibitor to help decrease stomach acid in case the bleeding may be coming from the upper abdomen, recommend 40 mg of the omeprazole daily short term until otherwise advised by the GI consult. You reported dark stools as well as bright red blood, this makes it difficult to decide if this is more upper gastrointestinal versus lower gastrointestinal bleeding. You need to keep the GI follow-up this coming week that is scheduled. I would recommend talking to your orthotic practitioner before withholding Eliquis, Eliquis is a blood thinner. Should you note increased bleeding, have concern for increased bleeding, do recommend re-evaluation in the interim. Activity Level: Activity as Tolerated Prescriptions: No Action apixaban 5 mg tablet 5 mg PO BID budesonide-formoterol [Breyna] 160-4.5 mcg/actuation HFA aerosol inhaler 2 puff inhalation BID furosemide 20 mg tablet 60 mg PO DAILY PRN hydroxychloroquine [Plaquenil] 200 mg tablet 400 mg PO DAILY losartan [Cozaar] 50 mg tablet 50 mg PO BID metoprolol succinate [Toprol XL] 100 mg tablet extended release 24 hr 100 mg PO BID mycophenolate mofetil [CellCept] 500 mg tablet 500 mg PO BID nortriptyline 10 mg capsule 10 mg PO HS omeprazole 20 mg capsule,delayed release(DR/EC) 20 mg PO DAILY calcium carbonate [Oyster Shell Calcium] 500 mg calcium (1,250 mg) tablet 500 mg PO DAILY sildenafil [Viagra] 100 mg tablet 100 mg PO DAILY PRN tamsulosin [Flomax] 0.4 mg capsule 0.4 mg PO DAILY albuterol sulfate 2.5 mg /3 mL (0.083 %) solution for nebulization 2.5 mg inhalation Q4H PRN (Reason: wheezing) albuterol sulfate [Ventolin HFA] 90 mcg/actuation HFA aerosol inhaler 2 puff INHALATION Q4H PRN (Reason: wheezing) tizanidine 2 mg tablet 2 mg PO Q8H PRN Sore Throat (phenol) 1.4 % Aerosol,[place] 1 spray mucous membrane Q2H PRNQty: 177 0RF Follow Up/Referrals: Janet Richardson DO [Primary Care Provider] - Stand Alone [facility]: [facility] Info Inst[facility]
[2023-06-03 13:10] VITALS: O2SAT 98
[2023-06-03 13:27] LABS: Lactate* 0.9 mmol/L (0.5-1.9)
[2023-06-03] MEDS: PANTOPRAZOLE SODIUM 40 MG INJ IVP (13:34)
[2023-06-03 13:36] LABS: Eosinophils Percent Auto 3.8 % (0.0-7.0); Hematocrit 37.6 % (37.0-53.0); Hemoglobin* 13.1 gm/dL (13.5-17.5); Immature Granulocytes Pct Auto 0.5 %; Lymphocytes Percent Auto 30.9 % (20-44); Mean Corpuscular HGB Conc 35 gm/dL (32-36); Mean Corpuscular Hemoglobin 32 pg (26-34); Mean Corpuscular Volume 92 fL (80-100); Monocytes Percent Auto 12.9 % (0.0-11.0); Neutrophils Percent Auto 51.9 % (42.0-72.0); Platelet Count* 182 K/uL (140-440); RDW Coefficient of Variation % 12.5 % (11.5-15.5); Red Blood Count 4.09 m/uL (4.30-5.90); White Blood Count* 3.72 K/uL (4.50-11.00)
[2023-06-03 13:38] LABS: Slide Review Reflex No
[2023-06-03 13:44] LABS: Fecal Occult Blood* Positive (Negative)
[2023-06-03 13:51] LABS: Albumin* 4.2 g/dL (3.3-5.0); Chloride* 110 mmol/L (96-114); Potassium* 4.2 mmol/L (3.6-5.1); Sodium* 138 mmol/L (135-149)
[2023-06-03 13:53] LABS: Anion Gap 7 mEq/L (7-15); Aspartate Amino Transferase* 39 U/L (12-35); Bilirubin Total* 0.5 mg/dL (0.1-1.5); Carbon Dioxide* 21 mmol/L (20-32); Creatinine* 0.9 mg/dL (0.5-1.5); Est. Creatinine Clearance* 75.03; Estimated Glomerular Filt Rate 94 ml/min; Total Protein* 7.3 g/dL (6.0-8.3)
[2023-06-03 13:54] LABS: Alanine Aminotransferase* 26 U/L (4-50); Alkaline Phosphatase* 49 U/L (40-150); Blood Urea Nitrogen* 21 mg/dL (7-30); Calcium* 9.7 mg/dL (8.4-10.6); Glucose* 96 mg/dL (60-115)
--- NOTE | 2023-06-03 14:56 | CT_ITS ---
Patient: HERMINIO WILDER Facility:?[facility] Patient ID:?[id number] Site Patient ID:?[id number]. Site :?[id number] Study:?CT-Abdomen/Pelvis w/ 135cc [id number] 4:11:55 PM Ordering Physician:Jerrod Art Final Report: Indication: Pain, melena, bright red blood per rectum Technique: Volumetric multidetector CT images of the abdomen and pelvis were obtained after the administration of intravenous contrast. 135 cc Isovue 370 low osmolar intravenous contrast Comparison: None available. Findings: There are bulky right greater than left hilar lymph nodes with calcified mediastinal, subcarinal and hilar adenopathy with moderate interstitial and parenchymal scarring as well as air bronchograms and consolidative opacities within the bilateral upper greater than lower lobes. There is a somewhat spiculated masslike consolidation within the left lung base measuring up to 2.0 centimeters. The liver is normal in attenuation without intrahepatic biliary ductal dilatation. The portal vein is patent. The gallbladder is unremarkable without evidence of radiopaque calculus. There is no significant common biliary ductal dilatation or abrupt cut off. The spleen is normal in enhancement and size. The stomach and duodenum are grossly unremarkable. The pancreas is normal in enhancement without significant atrophy. The adrenal glands are unremarkable. There are cortical defect of the right kidney with minimal peripheral calcified material which may represent prior wedge resection. Otherwise the kidneys demonstrate preserved corticomedullary differentiation without evidence of distal obstructive uropathy. There is moderate stool seen throughout the proximal colon with minimal distal colonic diverticulosis. There is minimal nonspecific fluid-filled central small bowel without evidence of obstructive change. The appendix is not visualized. There is no significant mesenteric, retroperitoneal, or pelvic sidewall lymph nodes. The aorta is nonaneurysmal. There is no significant atherosclerotic disease appreciated. The solid pelvic viscera are grossly unremarkable. There is no free fluid or free air. The anterior abdominal wall is intact without significant hernias. The lumbar vertebral body heights are grossly maintained with mild to moderate degenerative disc disease. There is no significant spondylolisthesis or displaced fracture. Impression: 1. Demonstration of extensive bulky lymph nodes with calcified mediastinal and hilar adenopathy seen within the lung base with air bronchograms, parenchymal scarring and masslike pulmonary nodules seen most prominently in the left lower lobe. Overall, these findings could represent evolving sarcoidosis changes and or sequela of prior organizing pneumonia and/or granulomatous infectious change. Correlate with clinical history. 2. Grossly unremarkable colon and small bowel with minimal nonspecific central fluid. No overt pericolonic inflammation is identified. Follow-up with angiography and/or colonoscopy may be useful for improved characterization. 3. No other acute intra-abdominal abnormalities are appreciated. Please note that all CT scans at this facility use dose modulation, iterative reconstruction, and/or weight-based dosing when appropriate to reduce radiation dose to as low as reasonably achievable. Dictated by Nicholas Rendon MD @ 06/03/2023 5:08:24 PM Signed by:?Nicholas Rendon MD @06/03/2023 5:08:24 PM (Electronic Signature)
== END 2023-06-03 17:27 | disposition home or self-care (01) ==
PROVIDERS: Emergency Provider Family Medicine; PCP Family Medicine
DX: K62.5 Hemorrhage of anus and rectum (principal); Z79.01 Long term (current) use of anticoagulants
CPT/HCPCS: 36415; 74177; 80053; 82270; 83605; 85025; 86850; 86900; 86901; 94761; 96374; 99284; C9113; Q9967

== ENCOUNTER 2023-06-13 15:07 | Emergency (ER) | payer OTHER, MEDICARE, SELFPAY ==
[2023-06-13] VITALS (12 sets, daily range): BP systolic 115–147; BP diastolic 82–112; PULSE 66–79; RESP 18; TEMP 36.6; O2SAT 97–100; BMI 39.5
--- NOTE | 2023-06-13 17:14 | ED_ITS ---
HPI - Chest Pain General Chief Complaint: Chest Pain Stated Complaint: Chest pain, L side tingling Time Seen by Provider: 06/13/23 16:47 History of Present Illness HPI narrative: This 68-year-old male comes in reporting some chest discomfort that began about 45 minutes prior to arrival here. He states that he was at lunch and not doing anything strenuous when he began to have some chest discomfort. He does not report any nausea, vomiting, lightheadedness, shortness of breath, or di aphoresis. He states that the pain lasted about 10 minutes but then has been coming and going in very mild form since then. Upon arrival here he has normal vital signs and his initial EKG looks completely normal. The patient does have sarcoidosis and states that at he has sarcoid in and around his heart. 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 He reports that his defibrillator has not discharged. Related Data Home Medications Medication Instructions Recorded Confirmed albuterol sulfate 2.5 mg/3 mL 2.5 mg inhalation Q4H PRN wheezing 01/23/23 06/03/23 (0.083 %) solution for nebulization albuterol sulfate 90 mcg/actuation 2 puff inhalation Q4H PRN wheezing 01/23/23 06/03/23 aerosol inhaler (Ventolin HFA) apixaban 5 mg tablet 5 mg PO BID 01/23/23 06/03/23 budesonide-formoterol HFA 160 2 puff inhalation BID 01/23/23 06/03/23 mcg-4.5 mcg/actuation aerosol inhaler (Breyna) calcium carbonate 500 mg calcium 500 mg PO DAILY 01/23/23 06/03/23 (1,250 mg) tablet (Oyster Shell Calcium) furosemide 20 mg tablet 60 mg PO DAILY PRN 01/23/23 06/03/23 hydroxychloroquine 200 mg tablet 400 mg PO DAILY 01/23/23 06/03/23 (Plaquenil) losartan 50 mg tablet (Cozaar) 50 mg PO BID 01/23/23 06/03/23 metoprolol succinate 100 mg 100 mg PO BID 01/23/23 06/03/23 tablet,extended release 24 hr (Toprol XL) mycophenolate mofetil 500 mg 500 mg PO BID 01/23/23 06/03/23 tablet (CellCept) nortriptyline 10 mg capsule 10 mg PO HS 01/23/23 06/03/23 omeprazole 20 mg capsule,delayed 20 mg PO DAILY 01/23/23 06/03/23 release sildenafil 100 mg tablet (Viagra) 100 mg PO DAILY PRN 01/23/23 06/03/23 tamsulosin 0.4 mg capsule (Flomax) 0.4 mg PO DAILY 01/23/23 06/03/23 tizanidine 2 mg tablet 2 mg PO Q8H PRN 01/23/23 06/03/23 Previous Rx's Medication Instructions Recorded phenol 1.4 % mucosal aerosol spray 1 spray mucous membrane Q2H PRN 01/24/23 (Sore Throat (phenol)) #177 mL Allergies Allergy/AdvReac Type Severity Reaction Status Date / Time pollen extracts Allergy Mild sore throat Verified 01/23/23 09:18 narcotics Allergy Intermediate NV Uncoded 06/03/23 12:15 Review of Systems Status of ROS Reports: 10 or more systems reviewed and unremarkable except as noted in History and below Narrative Constitutional: No fevers, no weight gain or loss. Eyes: No discharge. No vision changes. HENT: No congestion, no sore throat, no ear pain. Cardiovascular: No palpitations. Chest discomfort as described above. Respiratory: No shortness of breath, no wheezes, no cough. Gastrointestinal: No abdominal pain, no vomiting, no diarrhea. Genitourinary: No dysuria, no hematuria. Musculoskeletal: Normal range of motion. Skin: No rashes, no pruritis. Neurological: No dizziness, weakness, sensory change, speech change. Endo/Heme/Allergies: No bruising or bleeding. No polydipsia. Pysch: no suicidality, no anxiety, no insomnia. All other systems reviewed and are negative. [facility] Medical History Chronic low back pain ?M54.50 - Low back pain, unspecified (ICD-10) ?G89.29 - Other chronic pain (ICD-10) Shortness of breath ?R06.02 - Shortness of breath (ICD-10) Urinary urgency ?R39.15 - Urgency of urination (ICD-10) Hypertension ?I10 - Essential (primary) hypertension (ICD-10) Ascending aorta dilation ?I77.810 - Thoracic aortic ectasia (ICD-10) History of kidney stones ?Z87.442 - Personal history of urinary calculi (ICD-10) Spinal stenosis of lumbar region ?M48.061 - Spinal stenosis, lumbar region without neurogenic claudication (ICD-10) Lumbar radiculopathy ?M54.16 - Radiculopathy, lumbar region (ICD-10) Right bundle branch block ?I45.10 - Unspecified right bundle-branch block (ICD-10) NSVT (nonsustained ventricular tachycardia) ?I47.29 - Other ventricular tachycardia (ICD-10) PSVT (paroxysmal supraventricular tachycardia) ?I47.10 - Supraventricular tachycardia, unspecified (ICD-10) Obstructive sleep apnea ?G47.33 - Obstructive sleep apnea (adult) (pediatric) (ICD-10) Benign prostatic hyperplasia with urinary frequency ?N40.1 - Benign prostatic hyperplasia with lower urinary tract symptoms (ICD- 10) ?R35.0 - Frequency of micturition (ICD-10) History of wheezing ?Z87.898 - Personal history of other specified conditions (ICD-10) Sarcoidosis ?D86.9 - Sarcoidosis, unspecified (ICD-10) Surgical History History of cardiac defibrillator placement ?Z95.810 - Presence of automatic (implantable) cardiac defibrillator (ICD-10) History of arthroplasty of right knee ?Z96.651 - Presence of right artificial knee joint (ICD-10) History of transurethral resection of prostate ?Z98.890 - Other specified postprocedural states (ICD-10) ?Z90.79 - Acquired absence of other genital organ(s) (ICD-10) Family History (Updated 01/23/23 @ 13:39 by Thiago Rushing MD) Sister Alzheimers disease Diabetes Uterine cancer Brother High blood pressure Mother High blood pressure Social History Narrative: Patient lives alone in [place]. 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 Daughter Guerda and son Edilberto are healthcare power of metal furrer. Code status is full. He no longer smokes but has a remote history of occasional smoking. He drinks about 2 alcoholic beverages per week. No recreational drug use. What is your current living situation?: I presently have a place to live Problems where you live: no known problems Problems where you live details: NA In the past 12 months, utilities in danger of being shut off: no In past 12 months, lack of transportation kept you from medical appts, meetings, work, or getting things needed for daily living: no In the past 12 mos, have been you worried that your food would run out before you had money to buy more?: never true In the past 12 mos, the food you bought just didn't last and you didn't have money to buy more?: never true Highest level of school completed/degree received: high school graduate Smoking Status: Former smoker What tobacco products do you use: cigars Do you use any of these nicotine containing products: None How often do you have a drink containing alcohol: 2-4 times a month Alcohol type: beer and wine How many standard drinks containing alcohol do you have on a typical day: 1 or 2 AUDIT-C Alcohol total score: 2 Non-prescribed substance use: denies use Caffeine: Yes How often does anyone, including family, friends and others, physically hurt you : never How often does anyone, including family, friends and others, insult or talk down to you: never How often does anyone, including family, friends and others, threaten you with harm: never How often does anyone, including family, friends and others, scream or curse at you: never service: No Exam Narrative Exam Narrative: Constitutional: Well-developed, well-nourished, no acute distress. HEENT: Normocephalic, atraumatic. Neck: Normal range of motion. Nontender. Supple. Heart: Regular. No murmurs. Normal rate. Intact distal pulses. Lungs: Clear to auscultation. No chest discomfort. No wheezes, rhonchi, or rales. Abdomen: Normal bowel sounds. Nontender. No rebound tenderness. Genitalia: Deferred. Back: No midline tenderness. Normal range of motion. Extremities: Normal range of motion. No injury. Skin: Intact. No rash. Warm. No erythema or pallor. Neurologic: No altered sensation. No weakness. Alert and oriented. Psychiatric: No suicidality. No anxiety or depression. No insomnia. Nursing notes and vitals signs are reviewed. Const Vital Signs, click to edit/add: Vital Signs - 24 hr 06/13/23 15:09 06/13/23 17:05 06/13/23 17:06 Temperature 97.8 F Pulse Rate 75 75 Pulse Rate [Right Pulse Oximeter] 79 Respiratory Rate 18 Blood Pressure 115/82 Blood Pressure [Right Upper Arm] 147/91 H Pulse Oximetry 100 97 97 Oxygen Delivery Method Room Air 06/13/23 17:30 06/13/23 17:32 06/13/23 17:32 Temperature Pulse Rate 67 74 74 Pulse Rate [Right Pulse Oximeter] Respiratory Rate Blood Pressure 132/112 H 132/112 H Blood Pressure [Right Upper Arm] Pulse Oximetry 100 100 100 Oxygen Delivery Method 06/13/23 17:33 06/13/23 18:00 06/13/23 18:02 Temperature Pulse Rate 71 66 Pulse Rate [Right Pulse Oximeter] Respiratory Rate Blood Pressure 130/85 Blood Pressure [Right Upper Arm] Pulse Oximetry 100 100 Oxygen Delivery Method 06/13/23 18:03 06/13/23 18:30 06/13/23 18:32 Temperature Pulse Rate 70 69 68 Pulse Rate [Right Pulse Oximeter] Respiratory Rate Blood Pressure 139/86 Blood Pressure [Right Upper Arm] Pulse Oximetry 100 100 100 Oxygen Delivery Method Course Vital Signs Vital signs: Initial Vital Signs Temperature 97.8 F 06/13/23 15:09 Temperature Source Temporal Artery Scan 06/13/23 15:09 Pulse Rate 79 06/13/23 15:09 Respiratory Rate 18 06/13/23 15:09 Blood Pressure 147/91 H 06/13/23 15:09 Blood Pressure Mean 109 H 06/13/23 15:09 Blood Pressure Position Sitting 06/13/23 15:09 Pulse Oximetry 100 06/13/23 15:09 Oxygen Delivery Method Room Air 06/13/23 15:09 Vital Signs Temperature 97.8 F 06/13/23 15:09 Pulse Rate 79 06/13/23 15:09 Respiratory Rate 18 06/13/23 15:09 Blood Pressure 147/91 H 06/13/23 15:09 Pulse Oximetry 100 06/13/23 15:09 Oxygen Delivery Method Room Air 06/13/23 15:09 Temperature 97.8 F 06/13/23 15:09 Pulse Rate 68 06/13/23 18:32 Respiratory Rate 18 06/13/23 15:09 Blood Pressure 139/86 06/13/23 18:32 Pulse Oximetry 100 06/13/23 18:32 Oxygen Delivery Method Room Air 06/13/23 15:09 MDM - Chest Pain MDM Narrative Medical decision making narrative: This patient comes in reporting some chest discomfort that lasts somewhat briefly but seems to come in mild form here and there starting a bit before arrival here. His EKG shows normal sinus rhythm without any ST or T-wave abnormalities. Labs are acquired and these returned with reassuring findings. In particular his troponin returns at 0. The patient does have sarcoidosis which is involved in parts of his chest including around and in his heart. His chest pain seems to be atypical but not obviously related to coronary artery disease. The patient is not currently taking any steroid but states that he does on occasion when his sarcoidosis symptoms flare up. He thinks that this may be some of what is happening recently. He does have prednisone at home and will take some extra when he arrives at home. He is okay to be discharged. I advised him regarding signs and symptoms that would indicate a need for return and re-evaluation. Lab Data Labs: Lab Results 06/13/23 06/13/23 Range/Units 17:29 17:29 WBC 4.71 (4.50-11.00) K/uL RBC 4.26 L (4.30-5.90) m/uL Hgb 13.5 (13.5-17.5) gm/dL Hct 39.8 (37.0-53.0) % MCV 93 (80-100) fL MCH 32 (26-34) pg MCHC 34 (32-36) gm/dL RDW Coeff of Alice 12.3 (11.5-15.5) % Plt Count 170 (140-440) K/uL Neut % (Auto) 57.4 (42.0-72.0) % Lymph % (Auto) 28.7 (20-44) % [place] % (Auto) 10.6 (0.0-11.0) % Eos % (Auto) 2.5 (0.0-7.0) % Baso % (Auto) 0.2 (0.0-3.0) % Neut # (Auto) 2.70 (1.7-7.0) K/uL Lymph # (Auto) 1.35 (0.90-2.90) K/uL [place] # (Auto) 0.50 (0.00-0.90) K/UL Eos # (Auto) 0.12 (0.00-0.50) K/uL Baso # (Auto) 0.01 (0.00-0.30) K/uL Abs Immat Gran (auto) 0.03 (0.00-0.30) K/uL Imm/Tot Granulo (auto) 0.6 % Sodium 140 (135-149) mmol/L Potassium 4.1 (3.6-5.1) mmol/L Chloride 104 (96-114) mmol/L Carbon Dioxide 29 (20-32) mmol/L Anion Gap 7 (7-15) mEq/L BUN 21 (7-30) mg/dL Creatinine 1.0 (0.5-1.5) mg/dL Estimated Creat Clear 75.03 Estimated GFR 83 ml/min Glucose 94 (60-115) mg/dL Calcium 10.0 (8.4-10.6) mg/dL C-Reactive Protein < 0.5 L Cancelled (0.5-1.0) mg/dL POC Troponin I 0.00 L (0.01-0.04) ng/ml ECG Data Attestation: I personally reviewed and interpreted this ECG as follows: Interpretation: Normal sinus rhythm. Rate is 79 beats per minute. There are no ST or T-wave abnormalities. Discharge Plan Discharge Clinical Impression: Atypical chest pain, Sarcoidosis Patient Disposition: Home, Self-Care Condition: Stable Additional Instructions: Take prednisone as prescribed. Continue current plans otherwise. Follow up with MD return if worsening. Prescriptions: No Action apixaban 5 mg tablet 5 mg PO BID budesonide-formoterol [Breyna] 160-4.5 mcg/actuation HFA aerosol inhaler 2 puff inhalation BID furosemide 20 mg tablet 60 mg PO DAILY PRN hydroxychloroquine [Plaquenil] 200 mg tablet 400 mg PO DAILY losartan [Cozaar] 50 mg tablet 50 mg PO BID metoprolol succinate [Toprol XL] 100 mg tablet extended release 24 hr 100 mg PO BID mycophenolate mofetil [CellCept] 500 mg tablet 500 mg PO BID nortriptyline 10 mg capsule 10 mg PO HS omeprazole 20 mg capsule,delayed release(DR/EC) 20 mg PO DAILY calcium carbonate [Oyster Shell Calcium] 500 mg calcium (1,250 mg) tablet 500 mg PO DAILY sildenafil [Viagra] 100 mg tablet 100 mg PO DAILY PRN tamsulosin [Flomax] 0.4 mg capsule 0.4 mg PO DAILY albuterol sulfate 2.5 mg /3 mL (0.083 %) solution for nebulization 2.5 mg inhalation Q4H PRN (Reason: wheezing) albuterol sulfate [Ventolin HFA] 90 mcg/actuation HFA aerosol inhaler 2 puff INHALATION Q4H PRN (Reason: wheezing) tizanidine 2 mg tablet 2 mg PO Q8H PRN Sore Throat (phenol) 1.4 % Aerosol,[place] 1 spray mucous membrane Q2H PRNQty: 177 0RF Follow Up/Referrals: Janet Richardson DO [Primary Care Provider] - Stand Alone Forms: [facility] Info Instructions
[2023-06-13 17:38] LABS: Basophils Absolute Auto 0.01 K/uL (0.00-0.30); Basophils Percent Auto 0.2 % (0.0-3.0); Eosinophils Absolute Auto 0.12 K/uL (0.00-0.50); Eosinophils Percent Auto 2.5 % (0.0-7.0); Hematocrit 39.8 % (37.0-53.0); Hemoglobin* 13.5 gm/dL (13.5-17.5); Immature Granulocytes Abs Auto 0.03 K/uL (0.00-0.30); Immature Granulocytes Pct Auto 0.6 %; Lymphocytes Absolute Auto 1.35 K/uL (0.90-2.90); Lymphocytes Percent Auto 28.7 % (20-44); Mean Corpuscular HGB Conc 34 gm/dL (32-36); Mean Corpuscular Hemoglobin 32 pg (26-34); Mean Corpuscular Volume 93 fL (80-100); Monocytes Percent Auto 10.6 % (0.0-11.0); Neutrophils Percent Auto 57.4 % (42.0-72.0); Platelet Count* 170 K/uL (140-440); RDW Coefficient of Variation % 12.3 % (11.5-15.5); Red Blood Count 4.26 m/uL (4.30-5.90); White Blood Count* 4.71 K/uL (4.50-11.00)
[2023-06-13 17:39] LABS: Slide Review Reflex No
[2023-06-13 17:51] LABS: Chloride* 104 mmol/L (96-114); Potassium* 4.1 mmol/L (3.6-5.1); Sodium* 140 mmol/L (135-149)
[2023-06-13 17:54] LABS: Anion Gap 7 mEq/L (7-15); Blood Urea Nitrogen* 21 mg/dL (7-30); Carbon Dioxide* 29 mmol/L (20-32); Est. Creatinine Clearance* 75.03; Estimated Glomerular Filt Rate 83 ml/min
[2023-06-13 17:55] LABS: Glucose* 94 mg/dL (60-115)
[2023-06-13 18:03] LABS: C Reactive Protein* < 0.5 mg/dL (0.5-1.0)
== END 2023-06-13 19:42 | disposition home or self-care (01) ==
PROVIDERS: Emergency Provider Emergency Medicine Emergency Medical Services; PCP Family Medicine
DX: R07.9 Chest pain, unspecified (principal); D86.9 Sarcoidosis, unspecified
CPT/HCPCS: 36415; 80048; 84484; 85025; 86140; 93005; 99284